=== PATIENT | female | born 1970 | race Two or more races ===

== ENCOUNTER 2017-07-16 12:43 | Emergency (ER) | payer MEDICAID ==
[~2017-07-16] VITALS: Ht 152.4 cm; Wt 52.2 kg
--- NOTE | 2017-07-16 12:49 | NUR ---
GEO DWYER, WAS FOUND ALTERED ON STREET, BEGAN SCREAMING AND YELLING S/P 1MG NARCAN GIVEN IN FIELD. PLACED ON MONITOR.AWAITING MD ORDER
[2017-07-16] MEDS ORDERED: HALOPERIDOL LACTATE INJ 5 MG/ML VIAL ONE (12:51)
[2017-07-16] MEDS ORDERED: OLANZAPINE 10 MG VIAL IM ONE ×2 (12:53→17:00)
[2017-07-16] MEDS ORDERED: IV NS 0.9% 1,000 ML BAG IV ONE ×2 (13:30→14:00)
[2017-07-16 13:38] LABS: CALCIUM, SERUM 9.1 mg/dL (8.5-10.1); CREATININE 0.9 mg/dL (0.6-1.3); POTASSIUM 4.4 mmol/L (3.5-5.1)
[2017-07-16 13:43] LABS: BASOPHILS % (AUTO) 0.2 % (0.0-2.0); EOSINOPHILS % (AUTO) 1.5 % (0.0-6.0); HEMATOCRIT 39 % (33-45); HEMOGLOBIN 13.1 g/dL (11.5-14.8); LYMPHOCYTES # (AUTO) 1.1 /CMM (0.8-4.8); LYMPHOCYTES % (AUTO) 9.9 % (20.0-44.0); MEAN CORPUSCULAR HGB CONC 33 g/dl (31.0-36.0); MEAN CORPUSCULAR VOLUME 76 fL (82-100); MONOCYTES # (AUTO) 0.8 /CMM (0.1-1.30); MONOCYTES % (AUTO) 6.9 % (2.0-12.0); NEUTROPHILS % (AUTO) 81.5 % (43.0-81.0); PLATELET COUNT (AUTO) 492 /CMM (150-450); RDW COEFFICIENT OF VARIATION 17.1 (11.5-15.0); RED BLOOD CELL COUNT(AUTO) 5.18 MIL/uL (4.0-5.2); WHITE BLOOD COUNT (AUTO) 11.1 K/uL (4.3-11.0)
[2017-07-16] MEDS ORDERED: HALOPERIDOL LACTATE INJ 5 MG/ML VIAL IM ONE (17:00)
--- NOTE | 2017-07-16 22:41 | NUR ---
PT ALERT AMBULATORY STEADY GAIT DR SPAULDING MADE AWARE
--- NOTE | 2017-07-16 22:41 | NUR ---
PT LIVES WITH RIAZ [phone]
--- NOTE | 2017-07-16 23:09 | NUR ---
Patient discharged to home in stable condition. Written and verbal after care instructions given. Patient verbalizes understanding of instruction.
--- NOTE | 2017-07-16 23:09 | NUR ---
IV removed. Catheter intact and site benign. Pressure and 4x4 applied to site. No bleeding noted.
--- NOTE | 2017-07-16 23:10 | NUR ---
PER PT [id number] [facility] [id number]
--- NOTE | 2017-07-16 23:16 | NUR ---
DENIES SI/HI
--- NOTE | 2017-07-16 23:26 | NUR ---
TAXI VOUCHER GIVEN
[2017-07-16 23:33] VITALS: BP 110/68
== END 2017-07-16 23:34 | disposition home or self-care (01) ==
LOC: ER 12:45 → EDBD 12:45 → ER 23:34
DX: R41.82 Altered mental status, unspecified (principal)
CPT/HCPCS: 36415; 80048-TC; 80305; 84703-TC; 85025-TC; A4606; G0480; J1630; J3490; J7030

== ENCOUNTER 2017-10-30 19:24 | Inpatient (IN) | payer MEDICAID ==
[~2017-10-30] VITALS: Ht 165.1 cm; Wt 51.3 kg
--- NOTE | 2017-10-30 19:24 | NUR ---
BIB SELF; "LEFT ABD ABCESS" VSS NO ACUTE DISTRESS AT THIS TIME. SKIN IN AFFECTED AREA IS RED IN COLOR, HOT TO TOUCH. PT IS ALERT AND ORIENTED X3 ABLE TO MAKE NEEDS KNOWN. WILL CONTINUE TO MONITOR FOR ANY CHANGES DURING THE SHIFT.
--- NOTE | 2017-10-30 19:25 | NUR ---
ER MD CISNEROS AT BEDSIDE
[2017-10-30] MEDS ORDERED: ONDANSETRON HCL/PF 4 MG/2 ML VIAL IVP ONE (21:00)
[2017-10-30] MEDS ORDERED: IV NS 0.9% 1,000 ML BAG IV ONE (21:00)
[2017-10-30] MEDS ORDERED: VANCOMYCIN 1 GM in IV D5W 250 ML IV ONE (21:00)
[2017-10-30] MEDS ORDERED: MORPHINE SULFATE INJ 2 MG/ML DISP.SYRIN IV ONE (21:00)
[2017-10-30] MEDS ORDERED: CEFTRIAXONE 1GM BAG (ER ONLY) 50 ML IV ONE (21:00)
[2017-10-30] MEDS ORDERED: ONDANSETRON HCL/PF 4 MG/2 ML VIAL ONE (21:02)
[2017-10-30] MEDS ORDERED: CEFTRIAXONE 1 G VIAL ONE (21:02)
[2017-10-30] MEDS ORDERED: VANCOMYCIN 1 GM VIAL ONE (21:02)
[2017-10-30] MEDS ORDERED: MORPHINE SULFATE INJ 4 MG/ML DISP.SYRIN ONE (21:03)
[2017-10-30] MEDS ORDERED: LIDOCAINE HCL/PF 1% 30 ML SDV ONE (21:10)
--- NOTE | 2017-10-30 21:41 | NUR ---
PICC LINE IN ER AND NOTIFIED ABOUT ORDER FOR PICC LINE PLACEMENT ON THIS PATIENT.
[2017-10-30] MEDS ORDERED: MORPHINE SULFATE INJ 2 MG/ML DISP.SYRIN IM ONE (22:00)
--- NOTE | 2017-10-30 22:39 | NUR ---
TRIPLE LUMEN PICC LINE PLACED BY PICC LINE RN. CONSETN SIGNED AND PLACED IN CHART
--- NOTE | 2017-10-30 22:40 | NUR ---
BLOOD SENT TO LAB
--- NOTE | 2017-10-30 22:44 | NUR ---
RM 201
[2017-10-30 22:45] LABS: BASOPHILS % (AUTO) 0.1 % (0.0-2.0); EOSINOPHILS % (AUTO) 1.7 % (0.0-6.0); HEMATOCRIT 33 % (33-45); HEMOGLOBIN 10.5 g/dL (11.5-14.8); LYMPHOCYTES # (AUTO) 0.7 /CMM (0.8-4.8); LYMPHOCYTES % (AUTO) 4.9 % (20.0-44.0); MEAN CORPUSCULAR HEMOGLOBIN 25 PG (26.0-33.0); MEAN CORPUSCULAR HGB CONC 32 g/dl (31.0-36.0); MEAN CORPUSCULAR VOLUME 79 fL (82-100); MONOCYTES % (AUTO) 6.7 % (2.0-12.0); NEUTROPHILS % (AUTO) 86.6 % (43.0-81.0); PLATELET COUNT (AUTO) 498 /CMM (150-450); RDW COEFFICIENT OF VARIATION 16.9 (11.5-15.0); RED BLOOD CELL COUNT(AUTO) 4.21 MIL/uL (4.0-5.2)
--- NOTE | 2017-10-30 22:50 | NUR ---
REPORT GIVEN TO JOSE MALIK
[2017-10-30 22:57] LABS: CALCIUM, SERUM 8.2 mg/dL (8.5-10.1); CREATININE 0.7 mg/dL (0.6-1.3); POTASSIUM 4.4 mmol/L (3.5-5.1)
[2017-10-30 23:01] LABS: INR 0.94 (0.87-1.13)
[2017-10-30 23:15] VITALS: BP 96/56
--- NOTE | 2017-10-30 23:15 | NUR ---
RN NOTES RECEIVED PATIENT FROM ER FOR DX ABD/LEFT FLANK CELLULITIS. AO X 3, ABLE TO MAKE NEEDS KNOWN. NO ACUTE DISTRESS NOTED. MONITORED FOR PAIN. GABRIEL PICC PATENT, INTACT; FLUSHED. ABD/L FLANK DRESSING INTACT. SKIN ASSESSMENT DONE; WOUNDS PHOTOGRAPHED. SAFETY REMINDERS GIVEN. ORIENTATION TO ROOM AND UNIT GIVEN TO PATIENT. ON LOW BED WITH BILATERAL UPPER SIDE RAILS UP. CALL CH WITHIN EASY REACH. WILL CONTINUE TO MONITOR.
[2017-10-31] MEDS ORDERED: Z GUARD REMEDY 2 OZ OINT TP PRN (00:30)
[2017-10-31] MEDS ORDERED: ACETAMINOPHEN 325 MG TABLET PO PRN (00:30)
[2017-10-31] MEDS ORDERED: ONDANSETRON HCL/PF 4 MG/2 ML VIAL IVP PRN (00:30)
[2017-10-31] MEDS ORDERED: ZOLPIDEM TARTRATE 5 MG TABLET PO PRN (00:30)
[2017-10-31] MEDS ORDERED: MORPHINE SULFATE INJ 2 MG/ML DISP.SYRIN IV PRN (00:30)
[2017-10-31] MEDS: IV NS 0.9% 1,000 ML IV PRN ×2 (00:49→23:26)
[2017-10-31] MEDS ORDERED: MORPHINE SULFATE INJ 4 MG/ML DISP.SYRIN ONE (02:08)
[2017-10-31] MEDS: MORPHINE SULFATE INJ 4 MG/ML DISP.SYRIN IV PRN ×3 (02:35→18:31)
[2017-10-31] MEDS ORDERED: PIPERACILLIN /TAZOBACTAM 3.375 G in IV D5W 50 ML IV SCH (06:00)
--- NOTE | 2017-10-31 06:12 | NUR ---
RN NOTES PATIENT ASLEEP, EASILY AROUSABLE. RESPIRATIONS EVEN. NO SIGNS OF PAIN NOTED. IVF INFUSING ORDERED. NEEDS ATTENDED. SAFETY PRECAUTIONS AND COMFORT MEASURES IN PLACE. WILL GIVE REPORT TO DAY SHIFT FOR CONTINUITY OF CARE.
--- NOTE | 2017-10-31 07:30 | NUR ---
PT RECEIVED RESTING COMFORTABLY IN BED. NO S/S OR C/O PAIN OR DISTRESS NOTED. SIDERAILS UP X2, CALL LIGHT LEFT WITHIN REACH. WILL CONTINUE PLAN OF CARE.
[2017-10-31 07:58] VITALS: BP 100/56
[2017-10-31] MEDS ORDERED: FEE PK DOSING 1 MIN EA MC ONE (09:56)
--- NOTE | 2017-10-31 10:12 | NUR ---
Social service consult requested by keycase assembler Cecelia Cross for homelessness. Pt. is a 47 year old female who was admitted to [facility] for cellulitis. SW met with pt. bedside. Pt. is alert and oriented x 4. Pt. was cooperative with SW during the assessment. Pt. states she is resides with a friend at [address] [place] [address] in [place]. Pt's emergency contact is her daughter Jami Pulido . Pt. receives $250 a month in [place] and $150 in food stamps. Pt. denies any psychiatric diagnoses or hospitalizations. Pt. denies suicidal and homicidal ideations at this time. Pt. denies visual and auditory hallucinations. Pt. denies alcohol use. Pt. is a heroin user. Pt. was sober for 3 months and relapsed this week. Pt. attended a drug rehab facility in 2005. Pt. is interested in Drug Rehab referrals. SW to give pt. referrals prior to discharge. SW updated keycase assembler Jessica and JOSE Baca regarding pt. not being homeless. No other social service needs are requested at this time. SW is available, if needed.
[2017-10-31] MEDS: VANCOMYCIN 1 GM in IV D5W 250 ML IV SCH ×2 (10:58→21:26)
[2017-10-31] MEDS: AZTREONAM 1 G in IV NS 0.9% 100 ML IV SCH ×2 (13:32→20:40)
[2017-10-31 16:00] VITALS: BP 92/51
--- NOTE | 2017-10-31 18:14 | NUR ---
CHANGE OF SHIFT REPORT PT RESTING COMFORTABLY IN BED. NO S/S OR C/O PAIN OR DISTRESS NOTED. SIDE RAILS UP X2, CALL LIGHT LEFT WITHIN REACH. PT KEPT CLEAN, DRY, AND COMFORTABLE. NO SIGNIFICANT CHANGES SINCE PREVIOUS SHIFT. WILL GIVE REPORT TO IRVING GARCIA.
--- NOTE | 2017-10-31 19:00 | NUR ---
MS-2 RN OPENING NOTES PT SLEEPING IN BED. NO S/S OR C/O PAIN OR DISTRESS NOTED.PT HAS PICC LINE ONGOING NS AT 75 ML/H .BED IN LOWER AND LOCKED POSITION. SIDE RAILS UP X2, CALL LIGHT WITHIN REACH. WILL CONTINUE TO MONITOR.
[2017-10-31 20:00] VITALS: BP_SYST 100; BP_SYST 116; BP_SYST 95; BP_DIAS 55; BP_DIAS 56; BP_DIAS 57
[2017-11-01] MEDS: MORPHINE SULFATE INJ 4 MG/ML DISP.SYRIN IV PRN ×3 (00:10→20:25)
[2017-11-01] MEDS: AZTREONAM 1 G in IV NS 0.9% 100 ML IV SCH ×3 (04:50→20:11)
--- NOTE | 2017-11-01 06:28 | NUR ---
MS RN NOTES PATIENT ASLEEP, EASILY AROUSAL. RESPIRATIONS EVEN. NO SIGNS OF PAIN NOTED. IVF INFUSING ORDERED AT 75ML/HR. NEEDS ATTENDED. SAFETY PRECAUTIONS IN PLACE,CALL LIGHT WITHIN REACH.WILL ENDORSE TO NEXT SHIFT FOR CONTINUITY OF CARE.
[2017-11-01 08:13] VITALS: BP 92/70
[2017-11-01 08:44] LABS: BASOPHILS % (AUTO) 0.2 % (0.0-2.0); EOSINOPHILS % (AUTO) 3.7 % (0.0-6.0); HEMATOCRIT 36 % (33-45); HEMOGLOBIN 11.5 g/dL (11.5-14.8); LYMPHOCYTES # (AUTO) 0.7 /CMM (0.8-4.8); LYMPHOCYTES % (AUTO) 5.3 % (20.0-44.0); MEAN CORPUSCULAR HEMOGLOBIN 26 PG (26.0-33.0); MEAN CORPUSCULAR HGB CONC 32 g/dl (31.0-36.0); MEAN CORPUSCULAR VOLUME 80 fL (82-100); MONOCYTES % (AUTO) 7.5 % (2.0-12.0); NEUTROPHILS # (AUTO) 11.4 /CMM (1.8-8.9); NEUTROPHILS % (AUTO) 83.3 % (43.0-81.0); PLATELET COUNT (AUTO) 537 /CMM (150-450); RDW COEFFICIENT OF VARIATION 17.3 (11.5-15.0); WHITE BLOOD COUNT (AUTO) 13.7 K/uL (4.3-11.0)
[2017-11-01 08:45] LABS: CALCIUM, SERUM 8.7 mg/dL (8.5-10.1); CREATININE 0.7 mg/dL (0.6-1.3); MAGNESIUM 2.1 mg/dL (1.8-2.4); PHOSPHORUS 3.3 mg/dL (2.5-4.9); POTASSIUM 3.9 mmol/L (3.5-5.1)
[2017-11-01] MEDS: VANCOMYCIN 1 GM in IV D5W 250 ML IV SCH ×2 (09:04→21:25)
[2017-11-01] MEDS: DAKINS QUARTER STRENGTH (0.125%) 480 ML BOTTLE TOP SCH (09:16)
--- NOTE | 2017-11-01 09:20 | NUR ---
MS RN NOTES PATIENT IS A/O X4, AMBULATES INDEPENDENTLY. LEFT FLANK DRESSING C/D/I, C/O PAIN 11/13, MEDICATED WITH IV PRN MORPHINE, WILL REASSESS. GOOD APPETITE, BREATHING IN ROOM AIR. WILL CONT TO MONITOR.
--- NOTE | 2017-11-01 10:28 | NUR ---
WOUND CARE CONSULT WOUND CARE RECEIVED WOUND CONSULT FOR ABD/L FLANK ABSCESS, MULTIPLE SUPERFICIAL WOUNDS AND RED AREAS. WOUND CARE WILL DEFER CONSULT AND ALL TREATMENT PLANS TO SURGICAL TEAM WHO ARE CURRENTLY FOLLOWING. PATIENT WITH ROSARIO AT 22, WILL SEE PRN.
[2017-11-01 16:15] VITALS: BP 90/59
--- NOTE | 2017-11-01 18:33 | NUR ---
MS RN CLOSING NOTES VS remains stable, pain is controlled with IV PRN morphine. Continued on IV antibiotic for cellulitis left flank. Patient will be NPO breakfast, procedure tomorrow with Dr. Willy hill, patient consented procedure -Wound debridement and washout of left flank, consent form place in the chart. Will endorse to oncoming RN.
--- NOTE | 2017-11-01 19:30 | NUR ---
RN NOTES RECEIVED PATIENT IN BED AWAKE, AO X 3, ABLE TO MAKE NEEDS KNOWN. NO ACUTE DISTRESS NOTED. MONITORED FOR PAIN. IV SITE PATENT, INTACT; IVF INFUSING ORDERED. SAFETY REMINDERS GIVEN. ON LOW BED WITH BILATERAL UPPER SIDE RAILS UP. CALL CH WITHIN EASY REACH. WILL CONTINUE TO MONITOR.
[2017-11-01 20:00] VITALS: BP 102/58
[2017-11-02] MEDS: AZTREONAM 1 G in IV NS 0.9% 100 ML IV SCH ×3 (05:37→20:52)
--- NOTE | 2017-11-02 06:05 | NUR ---
RN NOTES PATIENT ASLEEP, EASILY AROUSABLE. RESPIRATIONS EVEN. NO SIGNS OF PAIN NOTED. DUE MEDS GIVEN WITH NO ASE NOTED. NEEDS ATTENDED. NPO SINCE MIDNIGHT. SAFETY PRECAUTIONS AND COMFORT MEASURES IN PLACE. WILL GIVE REPORT TO DAY SHIFT FOR CONTINUITY OF CARE.
[2017-11-02] MEDS: IV NS 0.9% 1,000 ML IV PRN (06:23)
[2017-11-02 06:38] LABS: CALCIUM, SERUM 8.3 mg/dL (8.5-10.1); CREATININE 0.6 mg/dL (0.6-1.3); POTASSIUM 4.2 mmol/L (3.5-5.1)
[2017-11-02 06:44] LABS: BASOPHILS % (AUTO) 0.2 % (0.0-2.0); EOSINOPHILS % (AUTO) 6.9 % (0.0-6.0); HEMATOCRIT 33 % (33-45); HEMOGLOBIN 10.7 g/dL (11.5-14.8); LYMPHOCYTES # (AUTO) 0.6 /CMM (0.8-4.8); LYMPHOCYTES % (AUTO) 5.8 % (20.0-44.0); MEAN CORPUSCULAR HEMOGLOBIN 25 PG (26.0-33.0); MEAN CORPUSCULAR HGB CONC 32 g/dl (31.0-36.0); MEAN CORPUSCULAR VOLUME 79 fL (82-100); MONOCYTES # (AUTO) 0.8 /CMM (0.1-1.30); MONOCYTES % (AUTO) 8.1 % (2.0-12.0); NEUTROPHILS # (AUTO) 8.2 /CMM (1.8-8.9); PLATELET COUNT (AUTO) 523 /CMM (150-450); RDW COEFFICIENT OF VARIATION 16.8 (11.5-15.0); RED BLOOD CELL COUNT(AUTO) 4.23 MIL/uL (4.0-5.2); WHITE BLOOD COUNT (AUTO) 10.4 K/uL (4.3-11.0)
[2017-11-02] MEDS ORDERED: MIDAZOLAM HCL 2 MG/2ML VIAL ONE (07:36)
[2017-11-02] MEDS ORDERED: FENTANYL PF 100MCG/2ML AMPUL ONE (07:36)
--- NOTE | 2017-11-02 07:54 | NUR ---
MS RN NOTES Patient is A/O 4, NPO post MN. Consent signed, patient consented procedure. At the OR today for wound debridement and washout of left flank. VS stable.
[2017-11-02 08:16] VITALS: BP 93/61
[2017-11-02 09:19] VITALS: BP 92/61
--- NOTE | 2017-11-02 09:20 | NUR ---
Patient is back from surgery, s/p wound debridement and washout left flank by Dr. Natarajan. Patient is awake, responsive, remains A/O x4, denies pain. Left flank, dressing C/D/I, no bleeding. Regular diet as ordered, will cont to monitor.
[2017-11-02] MEDS: VANCOMYCIN 1 GM in IV D5W 250 ML IV SCH ×2 (10:21→21:49)
[2017-11-02] MEDS: DAKINS QUARTER STRENGTH (0.125%) 480 ML BOTTLE TOP SCH (10:21)
[2017-11-02 12:00] VITALS: BP 120/59
[2017-11-02] MEDS: MORPHINE SULFATE INJ 4 MG/ML DISP.SYRIN IV PRN ×2 (12:50→18:57)
[2017-11-02 16:00] VITALS: BP 94/63
[2017-11-02] MEDS: LACTOBACILLUS RHAMNOSUS GG 1 EACH CAP.SPRINK PO SCH (16:25)
--- NOTE | 2017-11-02 18:10 | NUR ---
MS RN CLOSING NOTES s/p wound debridement and washout left flank today by Dr. Natarajan. VS remains stable, left flank dressing C/D/I, no bleeding noted. Pain is controlled with PRN IV morphine, continued on IV antibiotic. Afebrile during the shift, good appetite. Call light within reach. Will endorse to oncoming RN.
--- NOTE | 2017-11-02 19:03 | NUR ---
MS RN NOTES RECEIVED ON HIGH FOWLERS POSITION,A/O X4,ABLE TO VERBALIZED NEEDS,S/P WOUND DEBRIDEMENT ON LEFT BUTTOCKS.DRESSING INTACT AND DRY.ABLE TO ATE FOOD ALMOST 100%.CALL LIGHT IN REACH,NEEDS ANTICIPATED.
[2017-11-02 20:00] VITALS: BP 92/62
[2017-11-03] MEDS: IV NS 0.9% 1,000 ML IV PRN (04:57)
[2017-11-03] MEDS: AZTREONAM 1 G in IV NS 0.9% 100 ML IV SCH ×3 (04:57→20:02)
--- NOTE | 2017-11-03 06:23 | NUR ---
MS RN NOTES FAIRLY RESTED AT NIGHT,IV ABX TOLERATED WELL,NO COMPLAINTS OF PAIN.IVF INFUSING VIA RIGHT UPPER ARM PICC LINE.IN NO ACUTE DISTRESS,CALL LIGHT IN REACH,NEEDS ATTENDED.WILL ENDORSE TO DAY NURSE FOR ISAURA.
[2017-11-03] MEDS: MORPHINE SULFATE INJ 4 MG/ML DISP.SYRIN IV PRN ×2 (06:44→23:10)
--- NOTE | 2017-11-03 06:44 | NUR ---
MS RN NOTES C/O LEFT FLANK PAIN,9/10 ON PAIN SCALE,MORPHINE 4MG IVP GIVEN ORDERED
[2017-11-03 08:00] VITALS: BP 100/58
--- NOTE | 2017-11-03 08:00 | NUR ---
MS-2 RN AM NOTES PT ALERT AND AWAKE AND VERBALLY RESPONSIVE. NO S/S OR C/O PAIN OR DISTRESS NOTED.PT HAS GERMAINE PICC LINE ONGOING NS AT 75 ML/H INFUSING WELL.WITH BRP.BED IN LOWER AND LOCKED POSITION. SIDE RAILS UP X2, CALL LIGHT WITHIN REACH. WILL CONTINUE TO MONITOR.
[2017-11-03] MEDS: LACTOBACILLUS RHAMNOSUS GG 1 EACH CAP.SPRINK PO SCH ×2 (08:07→16:14)
[2017-11-03] MEDS: VANCOMYCIN 1 GM in IV D5W 250 ML IV SCH ×2 (08:32→21:13)
[2017-11-03] MEDS: DAKINS QUARTER STRENGTH (0.125%) 480 ML BOTTLE TOP SCH (08:32)
[2017-11-03 08:56] LABS: CALCIUM, SERUM 8.2 mg/dL (8.5-10.1); CREATININE 0.7 mg/dL (0.6-1.3); MAGNESIUM 1.7 mg/dL (1.8-2.4); PHOSPHORUS 3.8 mg/dL (2.5-4.9); POTASSIUM 3.8 mmol/L (3.5-5.1)
[2017-11-03 09:06] LABS: BASOPHILS % (AUTO) 0.2 % (0.0-2.0); EOSINOPHILS % (AUTO) 4.2 % (0.0-6.0); HEMATOCRIT 36 % (33-45); HEMOGLOBIN 11.3 g/dL (11.5-14.8); LYMPHOCYTES # (AUTO) 0.7 /CMM (0.8-4.8); MEAN CORPUSCULAR HEMOGLOBIN 25 PG (26.0-33.0); MEAN CORPUSCULAR HGB CONC 32 g/dl (31.0-36.0); MEAN CORPUSCULAR VOLUME 78 fL (82-100); MONOCYTES # (AUTO) 0.7 /CMM (0.1-1.30); NEUTROPHILS # (AUTO) 10.2 /CMM (1.8-8.9); NEUTROPHILS % (AUTO) 83.6 % (43.0-81.0); PLATELET COUNT (AUTO) 544 /CMM (150-450); RDW COEFFICIENT OF VARIATION 16.8 (11.5-15.0); RED BLOOD CELL COUNT(AUTO) 4.57 MIL/uL (4.0-5.2); WHITE BLOOD COUNT (AUTO) 12.3 K/uL (4.3-11.0)
--- NOTE | 2017-11-03 10:49 | NUR ---
SEEN BY TIM KANG AND STATED THAT THE PT IS GOING TO STAY WITH HER FRIEND AND RESOURCES FOR DRUG REHAB GIVEN TO THE PT.
--- NOTE | 2017-11-03 10:52 | NUR ---
SW followed up with pt. and gave her drug rehab referrals to [facility] located at [address] [facility] ; [facility] located at [address] [facility]. ; and [facility] located at [address] [facility]. .
[2017-11-03] MEDS: Magnesium 1GM/D5W 100ML PREMIX 100 ML IV SCH ×2 (10:54→11:44)
[2017-11-03 16:00] VITALS: BP 93/62
[2017-11-03] MEDS: HYDROMORPHONE 1 MG/1 ML DISP.SYRIN IV PRN (17:18)
--- NOTE | 2017-11-03 17:42 | NUR ---
WOUND TX DONE TO LT FLANK WOUND BUT PT REFUSED TO DO HAVE THE WOUND PACKING WITH DAKINS MOIST DRESSING INSPITE OF EXPLANATIONS.
--- NOTE | 2017-11-03 18:23 | NUR ---
PT RESTING IN BED WITH DENIES PAIN OR DISTRESS.CONSUMED 100%DINNER WITH EXTRA PEANUT BUTTER JELLY SANDWICH.CALL LIGHT PLACED WITHIN REACH.
--- NOTE | 2017-11-03 19:25 | NUR ---
MS RN OPENING NOTES: RECEIVED PT ON ROOM AIR AND IS ASLEEP AT THIS TIME. PT HAS L UPPER ARM PICC LINE AND IS TO BE CONNECTED TO IV FLUIDS SOON. CALL LIGHT WITHIN PT'S REACH. BED KEPT IN LOW, LOCKED POSITION, AND SIDE RAILS X 2UP. WILL CONTINUE TO MONITOR PT.
[2017-11-03 20:00] VITALS: BP 95/56
--- NOTE | 2017-11-03 23:15 | NUR ---
MS RN NOTES: PT COMPLAINING OF 8/10 L FLANK,HIP PAIN. PT WAS ADMINISTERED MORPHINE 4MG VIA IV. WILL CONTINUE TO MONITOR PT.
[2017-11-04] MEDS: AZTREONAM 1 G in IV NS 0.9% 100 ML IV SCH ×2 (04:03→13:07)
[2017-11-04 06:41] LABS: EOSINOPHILS % (AUTO) 2.8 % (0.0-6.0); HEMATOCRIT 36 % (33-45); HEMOGLOBIN 11.2 g/dL (11.5-14.8); LYMPHOCYTES # (AUTO) 0.5 /CMM (0.8-4.8); LYMPHOCYTES % (AUTO) 4.4 % (20.0-44.0); MEAN CORPUSCULAR HEMOGLOBIN 25 PG (26.0-33.0); MEAN CORPUSCULAR HGB CONC 32 g/dl (31.0-36.0); MEAN CORPUSCULAR VOLUME 79 fL (82-100); MONOCYTES # (AUTO) 0.9 /CMM (0.1-1.30); MONOCYTES % (AUTO) 7.6 % (2.0-12.0); NEUTROPHILS # (AUTO) 10.4 /CMM (1.8-8.9); NEUTROPHILS % (AUTO) 85.2 % (43.0-81.0); PLATELET COUNT (AUTO) 500 /CMM (150-450); RDW COEFFICIENT OF VARIATION 17.6 (11.5-15.0); RED BLOOD CELL COUNT(AUTO) 4.47 MIL/uL (4.0-5.2); WHITE BLOOD COUNT (AUTO) 12.3 K/uL (4.3-11.0)
--- NOTE | 2017-11-04 06:48 | NUR ---
MS RN CLOSING NOTES: ALL NEEDS WERE ATTENDED AND ANTICIPATED FOR. PT ON ROOM AIR AND TOLERATING WELL. PT ASLEEP AT THIS TIME. PT DISCONNECTED FROM IV SHE SAYS SHE NEEDS TO CONSTANTLY USE THE RESTROOM. PT HAS R UPPER ARM PICC LINE. PT IS TO BE CONNECTED TO IV NS AT 75ML/HR. CALL LIGHT WITHIN PT'S REACH. BED KEPT IN LOW, LOCKED POSITION, AND SIDE RAILS X 2UP. WILL ENDORSE TO AM NURSE FOR ISAURA.
[2017-11-04 07:21] LABS: CALCIUM, SERUM 8.2 mg/dL (8.5-10.1); CREATININE 0.7 mg/dL (0.6-1.3); POTASSIUM 4.2 mmol/L (3.5-5.1)
[2017-11-04 08:00] VITALS: BP 95/60
--- NOTE | 2017-11-04 08:00 | NUR ---
MS-2 RN AM NOTES PT ALERT AND AWAKE AND VERBALLY RESPONSIVE. NO S/S OR C/O PAIN OR DISTRESS NOTED.PT HAS GABRIEL PICC LINE ONGOING NS AT 75 ML/H INFUSING WELL.WITH BRP.BED IN LOWER AND LOCKED POSITION. SIDE RAILS UP X2, CALL LIGHT WITHIN REACH. WILL CONTINUE TO MONITOR.
[2017-11-04] MEDS: VANCOMYCIN 1 GM in IV D5W 250 ML IV SCH (08:39)
[2017-11-04] MEDS: LACTOBACILLUS RHAMNOSUS GG 1 EACH CAP.SPRINK PO SCH ×2 (08:39→17:35)
[2017-11-04] MEDS: DAKINS QUARTER STRENGTH (0.125%) 480 ML BOTTLE TOP SCH (08:40)
[2017-11-04] MEDS: HYDROMORPHONE 1 MG/1 ML DISP.SYRIN IV PRN (09:31)
[2017-11-04] MEDS ORDERED: SULF1TAB48 PO (12:15)
[2017-11-04] MEDS ORDERED: OXYC-128 PO (12:15)
--- NOTE | 2017-11-04 15:32 | NUR ---
PT REFUSED TO HAVE HER WOUND PHOTOS TO BE TAKEN AT THIS TIME SAYING TO DO IT LATER.DISCHARGE PAPERS,BELONGINGS,INSTRUCTIONS AND PRESCRIPTION HAS BEEN GIVEN TO THE PT.PT WANTS TO SLEEP AND REST AT THIS TIME.
[2017-11-04 16:00] VITALS: BP 97/60
--- NOTE | 2017-11-04 16:35 | NUR ---
PT'S EX ARRIVED AND WAS IN A MOTT TO HAVE WOUND PHOTOS TO BE TAKEN-UNABLE TO PUT THE DATE AND TIME.OFFERED TO DO IT LATER BUT PT REFUSED.PT REFUSED TO HAVE HER RT HIP WOUND PHOTO TO BE TAKEN.
--- NOTE | 2017-11-04 18:27 | NUR ---
PT AWAITING FOR HER FRIEND TO PICK HER UP.PT'S EX AT BEDSIDE.REMOVED PT'S GABRIEL PICC LINE WITHOUT BLEEDING NOTED.PT TOLERATED WELL.NO SWELLING NOTED ON THE SITE.
--- NOTE | 2017-11-04 19:14 | NUR ---
DC NOTES: [id number] REPORT FROM UZMA GARCIA, PT DC TO HOME. ALL DC PAPER WORKS COMPLETED, SIGNED, BELONGINGS COMPLETED, HANDED OVER TO PT, SIGNED, PT'S EX DOESNT WANT TO LEAVE THE HOSPITAL SEEMS LIKE HE'S UNDER THE INFLUENCE, SECURITY WAS CALLED, ELEVATOR REPAIR MECHANIC ASSISTED PT'S IN A WHEELCHAIR. A/O X3, PER PT SHE WILL BRING HER EX HOME. ARMBAND AND IV ACCESS REMOVED. PT WAS PICKED UP BY HER FRIEND. LEFT THE UNIT VIA WHEELCHAIR ACCOMPANIED BY ELEVATOR REPAIR MECHANIC. MEDICALLY CLEARED, LEFT IN STABLE CONDITION.
== END 2017-11-04 19:20 | disposition home or self-care (01) | DRG 364 ==
LOC: ER 19:25 → MEDSG2 23:03
PROVIDERS: ADMIT Nurse Practitioner Acute Care; ATTEND Nurse Practitioner Acute Care
PROC: B548ZZA Ultrasonography of Superior Vena Cava, Guidance (ICD-10-PCS; 2017-10-30)
PROC: 02HV33Z Insertion of Infusion Device into Superior Vena Cava, Percutaneous Approach (ICD-10-PCS; 2017-10-30)
PROC: 0KBL0ZZ Excision of Left Abdomen Muscle, Open Approach (ICD-10-PCS; principal; 2017-11-02 13:00)
DX: L02.211 Cutaneous abscess of abdominal wall (principal); D47.3 Essential (hemorrhagic) thrombocythemia; D50.9 Iron deficiency anemia, unspecified; F17.200 Nicotine dependence, unspecified, uncomplicated; F19.10 Other psychoactive substance abuse, uncomplicated; Z59.0 Homelessness; Z88.0 Allergy status to penicillin
CPT/HCPCS: 36415; 80048-TC; 80061-TC; 80202-TC; 83605-TC; 83735-TC; 84100-TC; 84702-TC; 84703-TC; 85025-TC; 85730-TC; 87040-TC; 87070-TC; 87075-TC; 87081-TC; A4606; A6253; A6402; A6403; A6407; C1751; J0696; J1170; J2250; J2270; J2405; J2543; J3010; J3370; J3475; J3490; J7030; J7050; J7060; Z7610

== ENCOUNTER → 2017-11-22 | Emergency (ER) | payer MEDICAID ==
[~2017-11-22] VITALS: Ht 165.1 cm; Wt 47.6 kg
[~2017-11-22] MED LIST: AZTREONAM 1 G in IV NS 0.9% 100 ML IV ONE; CT SWABBABLE VALVE TRANS SET 1 EA INFUS.SET MC ONE; HYDROCODONE/APAP 5/325MG 1 EACH TABLET ONE; HYDROCODONE/APAP 5/325MG 1 EACH TABLET PO ONE; IOHEXOL-300 100 ML VIAL IV ONE; IV NS 0.9% 1,000 ML BAG IV ONE; IV NS 0.9% 250 ML IV ONE; LIDOCAINE 1%-EPI 1:100,000 20 ML VIAL ONE; OXYC-128 PO; SULF1TAB48 PO; VANCOMYCIN 1 GM in IV D5W 250 ML IV ONE
--- NOTE | 2017-11-22 14:00 | NUR ---
ABSCESS TO BACK OF L LEG S/P DRUG INJECTION, DEVELOPING FOR "WEEKS", DRAINING PUS AND BLOOD NAD NOTED, VSS, RESP EVEN AND UNLABORED, PT WAS PUT ON MONITOR, WAITING FOR MD CASAREZ.
--- NOTE | 2017-11-22 14:54 | NUR ---
CALLED NURSING CREDIT AND COLLECTIONS REPRESENTATIVE AND REQUESTED A MED SURG BED FOR THIS PT.
[2017-11-22 14:55] LABS: BASOPHILS # (AUTO) 0.1 /CMM (0.0-0.2); BASOPHILS % (AUTO) 1.2 % (0.0-2.0); EOSINOPHILS % (AUTO) 4.6 % (0.0-6.0); HEMATOCRIT 34 % (33-45); HEMOGLOBIN 10.9 g/dL (11.5-14.8); LYMPHOCYTES # (AUTO) 0.8 /CMM (0.8-4.8); LYMPHOCYTES % (AUTO) 9.4 % (20.0-44.0); MEAN CORPUSCULAR HEMOGLOBIN 25 PG (26.0-33.0); MEAN CORPUSCULAR HGB CONC 32 g/dl (31.0-36.0); MEAN CORPUSCULAR VOLUME 76 fL (82-100); MONOCYTES # (AUTO) 0.7 /CMM (0.1-1.30); MONOCYTES % (AUTO) 8.6 % (2.0-12.0); NEUTROPHILS # (AUTO) 6.7 /CMM (1.8-8.9); NEUTROPHILS % (AUTO) 76.2 % (43.0-81.0); PLATELET COUNT (AUTO) 621 /CMM (150-450); RDW COEFFICIENT OF VARIATION 14.7 (11.5-15.0); RED BLOOD CELL COUNT(AUTO) 4.44 MIL/uL (4.0-5.2); WHITE BLOOD COUNT (AUTO) 8.7 K/uL (4.3-11.0)
[2017-11-22 15:04] LABS: CALCIUM, SERUM 8.9 mg/dL (8.5-10.1); CREATININE 0.8 mg/dL (0.6-1.3); POTASSIUM 3.6 mmol/L (3.5-5.1)
[2017-11-22 15:06] LABS: INR 0.95 (0.85-1.15)
[2017-11-22 15:13] LABS: ALBUMIN 2.5 g/dL (3.4-5.0); BILIRUBIN,DIRECT 0.1 mg/dL (0.0-0.2); BILIRUBIN,TOTAL 0.2 mg/dL (0.2-1.0); TOTAL PROTEIN, SERUM 7.3 g/dL (6.4-8.2)
--- NOTE | 2017-11-22 16:46 | NUR ---
PT TO CTSCAN
[2017-11-22 17:20] VITALS: BP 115/75
--- NOTE | 2017-11-22 17:30 | NUR ---
rfa midline removed. Catheter intact and site benign. Pressure and 4x4 applied to site. No bleeding noted.
--- NOTE | 2017-11-22 17:38 | NUR ---
Patient does not wish to proceed with medical care recommended by Dr. Lemus. Patient given information related to possible complications, up to and including , which could occur as a result of leaving the hospital at this time. Patient verbalizes understanding of risks involved due to leaving against medical advice. Patient has signed AMA form.
== END | disposition left against medical advice (07) ==
LOC: ER 13:14
DX: L02.416 Cutaneous abscess of left lower limb (principal); F11.10 Opioid abuse, uncomplicated; D47.3 Essential (hemorrhagic) thrombocythemia; F17.200 Nicotine dependence, unspecified, uncomplicated; R91.1 Solitary pulmonary nodule; D64.9 Anemia, unspecified; Z88.0 Allergy status to penicillin
CPT/HCPCS: 10061; 36415; 71045; 71260; 73552; 80048; 80076; 84703; 85025; 85730; 87040 ×2; 87070; 87081; 93005; 99285; 99406; A4606; A6253; A6402 ×2; A6403 ×2; A6407; J3490; J7030; J7050; Q9967; Z7610; J3370; J7060

== ENCOUNTER 2018-09-15 02:06 | Emergency (ER) | payer MEDICAID ==
[~2018-09-15] VITALS: Ht 170.2 cm; Wt 52.2 kg
[2018-09-15 02:25] VITALS: BP 132/93
--- NOTE | 2018-09-15 03:17 | NUR ---
CALLED IN WR, NO ANSWER.
--- NOTE | 2018-09-15 04:01 | NUR ---
PATIENT NOT IN WR.
--- NOTE | 2018-09-15 04:43 | NUR ---
PATIENT NOT IN WR.
== END 2018-09-15 04:47 | disposition left against medical advice (07) ==
LOC: ER 02:11
DX: Z53.21 Procedure and treatment not carried out due to patient leaving prior to being seen by health care provider (principal); R22.0 Localized swelling, mass and lump, head

== ENCOUNTER 2021-02-10 02:20 | Inpatient (IN) | payer MEDICAID ==
[~2021-02-10] VITALS: Ht 165.1 cm; Wt 54.4 kg
[2021-02-10 03:19] VITALS: BP 139/76
[2021-02-10] MEDS ORDERED: VANCOMYCIN 1 GM in IV D5W 250 ML IV ONE (03:30)
[2021-02-10] MEDS ORDERED: MORPHINE SULFATE INJ 2 MG/ML DISP.SYRIN IV ONE (03:30)
[2021-02-10] MEDS ORDERED: ONDANSETRON HCL/PF 4 MG/2 ML VIAL IVP ONE (03:30)
[2021-02-10] MEDS ORDERED: VANCOMYCIN 1 GM VIAL ONE (03:33)
[2021-02-10] MEDS ORDERED: MORPHINE SULFATE INJ 4 MG/ML DISP.SYRIN ONE (03:33)
[2021-02-10] MEDS ORDERED: ONDANSETRON HCL/PF 4 MG/2 ML VIAL ONE (03:33)
--- NOTE | 2021-02-10 03:50 | NUR ---
BLOOD COLLECTED, SENT TO LAB.
--- NOTE | 2021-02-10 03:50 | NUR ---
EMILIAID SWABBED, SENT TO LAB.
[2021-02-10 03:58] LABS: BASOPHILS % (AUTO) 0.4 % (0.0-2.0); EOSINOPHILS % (AUTO) 2.2 % (0.0-6.0); HEMATOCRIT 39 % (33-45); HEMOGLOBIN 12.8 g/dL (11.5-14.8); LYMPHOCYTES # (AUTO) 0.9 K/uL (0.8-4.8); LYMPHOCYTES % (AUTO) 8.3 % (20.0-44.0); MEAN CORPUSCULAR HGB CONC 33 g/dl (31.0-36.0); MEAN CORPUSCULAR VOLUME 78 fL (82-100); MONOCYTES # (AUTO) 0.6 K/uL (0.1-1.30); MONOCYTES % (AUTO) 5.5 % (2.0-12.0); NEUTROPHILS # (AUTO) 8.8 K/uL (1.8-8.9); NEUTROPHILS % (AUTO) 83.6 % (43.0-81.0); PLATELET COUNT (AUTO) 661 K/uL (150-450); RED BLOOD CELL COUNT(AUTO) 4.98 MIL/uL (4.0-5.2); WHITE BLOOD COUNT (AUTO) 10.5 K/uL (4.3-11.0)
[2021-02-10 04:11] LABS: CALCIUM, SERUM 9.2 mg/dL (8.5-10.1); CREATININE 0.8 mg/dL (0.6-1.3); POTASSIUM 3.5 mmol/L (3.5-5.1)
[2021-02-10 04:14] LABS: ALBUMIN 3.2 g/dL (3.4-5.0); BILIRUBIN,DIRECT 0.2 mg/dL (0.0-0.2); BILIRUBIN,TOTAL 0.5 mg/dL (0.2-1.0); TOTAL PROTEIN, SERUM 8.4 g/dL (6.4-8.2)
--- NOTE | 2021-02-10 05:41 | NUR ---
REPORT GIVEN TO BIC
--- NOTE | 2021-02-10 05:55 | NUR ---
PATIENT BEING TRANSFERRED TO [facility]
[2021-02-10] MEDS ORDERED: ONDANSETRON HCL/PF 4 MG/2 ML VIAL IVP PRN (06:00)
[2021-02-10] MEDS ORDERED: MAG HYDROX/AL HYDROX/SIMETH 30 ML UDC PO PRN (06:00)
[2021-02-10] MEDS ORDERED: HYDROCODONE/APAP 5/325MG TABLET PO PRN (06:00)
[2021-02-10] MEDS ORDERED: HYDROMORPHONE INJ 2 MG/ML DISP.SYRIN IV PRN (06:00)
[2021-02-10] MEDS ORDERED: ZOLPIDEM TARTRATE 5 MG TABLET PO PRN (06:00)
[2021-02-10] MEDS ORDERED: Z GUARD REMEDY 2 OZ OINT TP PRN (06:00)
[2021-02-10] MEDS ORDERED: ACETAMINOPHEN 325 MG TABLET PO PRN (06:00)
[2021-02-10] MEDS ORDERED: MAGNESIUM HYDROXIDE 30 ML UDC PO PRN (06:00)
--- NOTE | 2021-02-10 06:36 | NUR ---
RN ADMITTING NOTES: RECEIVED PATIENT V FROM ER VIA [facility] AT 0620 ON STABLE CONDITION, PATIENT IS ALERT ORIENTED X4 AMBULATORY WITH SUPERVISION, BRP, NO COMPLAIN OF PAIN AND DISCOMFORT AT THIS TIME, SKIN ASSESSMENT DONE, TAKEN AND DOCUMENTED, WITH IV LINE AT R HAND #22 SL, PATIENT WAS ORIENTED TO PLACE, REMIND PATIENT TO USE CALL LIGHTS WHEN NEEDED ASSISTANCE, V/S ARE TAKEN AND RECORDED AND WNR, KEPT CLEAN AND DRY, ALL NEED MET ENDORSE TO INCOMING SHIFT.
[2021-02-10] MEDS ORDERED: HYDROMORPHONE 1 MG/1 ML DISP.SYRIN IV PRN (07:30)
--- NOTE | 2021-02-10 07:41 | NUR ---
RN OPENING NOTES PATIENT IN BED SLEEPING, AWAKENS TO VERBAL STIMULI. A/O X4. NO S/S OF PAIN NOTED AT THIS TIME. ON ROOM AIR, NO DISTRESS OR SHORTNESS OF BREATH NOTED. IV ACCESS RIGHT HAND #22G, INTACT AND PATENT. FALL AND SAFETY MEASURES IN PLACE, BED ALARM ON, BED IN LOW AND LOCK POSITION, CALL LIGHT WITHIN EASY REACH, SIDE RAILS UP X2. WILL CONTINUE TO MONITOR.
--- NOTE | 2021-02-10 09:44 | NUR ---
WOUND CARE CONSULT: PT REFUSED SKIN ASSESSMENT. DEFER TO PMD FOR POSSIBLE SURGICAL CONSULT. WILL SEE PRN. Addendum: 02/10/21 at 0959 by MARIO GAMINO WNDNU PT PREVIOUSLY SEEN BY PLASTICS TEAM. DR TRIVEDI CONSULTED. DISCUSSED WITH NURSING STAFF AND PEDIATRIC ORTHODONTIST.
--- NOTE | 2021-02-10 11:25 | NUR ---
SS Consult: SS consult for drug abuse. Pt. Is a 50-year-old female. Pt. demonstrates adequate insight to the reason for hospitalization. Per pt., she was brought to hospital by boyfriend due to abscess. Pt. was oriented x3, alert, and cooperative. During interview, pt. was capable of following directions, did not make eye-contact, and looked in pain. Pt.s speech was at a normal rate. TIM explored pt.s Hx of mental health and substance abuse. Pt. reported no Hx of mental health, substance abuse, suicidal or homicidal. Pt. denies auditory hallucinations, visual hallucinations, paranoia, or delusions. Per pt., she does not have Hx of substance use. TIM explored pt.s living situation. Per pt., she lives with her boyfriend [[id number] [place] [address]]. Per pt., she reports having adequate support from her boyfriend. TIM explored pt.s financial status. Per pt., she is currently not working and receives food stamps. Plan: TIM provided available resources and pt. denied. Per pt., she does not have a substance problem. Once discharge, per pt., she will return to home with her boyfriend [[address] [place] [address]]. Resources Provided: Substance Abuse resources provided included: [facility] Substance Abuse Self-Helpline ([facility]) ; [facility] [address] [facility]. [place] [id number] ; [facility] [address] [facility] [address] ; [facility] [address] [facility] [address] ; [facility] [address] [facility] [address] ; [facility] [address] [facility] [address] ; [facility] [address] [facility] [id number] ; [facility] Substance Abuse Helpline([facility] ; [facility] ; [facility] [place]; [facility] [place]; [facility] [place]; [facility] Jasbir Hiram; [facility] [place]; [facility] [place]; [facility] [place]; [facility], [facility]. Cece Marx; Alcoholics Anonymous [facility]; [facility] ; Marijuana Anonymous [facility]; Narcotics Anonymous www.na.org;
--- NOTE | 2021-02-10 11:41 | NUR ---
RN NOTE PT WANTED VISITORS TO COME TO HOSPITAL. VISITORS ARE UNVACCINATED AND UNABLE TO COME IN D/T TO HOSPITAL POLICY. PT STATED THAT SHE WANTS TO GO TO ANOTHER HOSPITAL. STATED TO PT THAT HOSPITAL POLICIES WILL NOT ALLOW UNVACCINATED VISITORS. PT STILL WANTS TO GO, SIGNED AMA FORM.
--- NOTE | 2021-02-10 11:46 | NUR ---
RN AMA NOTE PT LEFT HOME AMA. IV LINE REMOVED. ID BAND REMOVED. PT DECLINED EXITCARE EDUCATION AND DISCHARGE EDUCATION. MD NOTIFIED AND ALERTED OF AMA. CN AWARE. PT BELONGINGS DECLINED TO BE SIGNED. PT REFUSED WOUND ASSESSMENT PRIOR TO D/C. PT ESCORTED TO PRIVATE CAR ACCOMPANIED BY STAFF.
[2021-02-10] MEDS ORDERED: VANCOMYCIN 0.75 GM in IV D5W 250 ML IV SCH (13:00)
== END 2021-02-10 11:45 | disposition left against medical advice (07) | DRG 383 ==
LOC: ER 02:25 → MED 05:31
PROVIDERS: ADMIT Student in an Organized Health Care Education/Training Program; ATTEND Student in an Organized Health Care Education/Training Program
DX: L03.317 Cellulitis of buttock (principal); E44.1 Mild protein-calorie malnutrition; L02.31 Cutaneous abscess of buttock; E87.1 Hypo-osmolality and hyponatremia; R74.01 Elevation of levels of liver transaminase levels; Z20.822 Contact with and (suspected) exposure to COVID-19; Z88.0 Allergy status to penicillin; Z72.0 Tobacco use; Z59.00 Homelessness unspecified
CPT/HCPCS: 36415; 80048-TC; 80076-TC; 83605-TC; 85025-TC; 85730-TC; 87040-TC; 87081-TC; C9803; G0378; J2270; J2405; J3370; J7060

== ENCOUNTER 2021-06-18 02:47 | Inpatient (IN) | payer MEDICAID ==
[~2021-06-18] VITALS: Ht 165.1 cm; Wt 56.7 kg
--- NOTE | 2021-06-18 03:02 | NUR ---
TO ER BED 9. BIBSELF C/O ABCESS ON RIGHT BUTTOCKS, DRAINAGE X 4 DAYS. REDNESS NOTED. PT DENIES ANY TRAUMA. CHANGED INTO GOWN. AWAITING MD CASAREZ
--- NOTE | 2021-06-18 03:10 | NUR ---
COVID ANTIGEN SWAB COLLECTED AND SENT TO LAB
[2021-06-18] MEDS ORDERED: VANCOMYCIN 1 GM in IV D5W 250 ML IV ONE (03:30)
--- NOTE | 2021-06-18 03:45 | NUR ---
LAB AT BEDSIDE
[2021-06-18 03:53] LABS: BASOPHILS % (AUTO) 0.2 % (0.0-2.0); EOSINOPHILS % (AUTO) 3.7 % (0.0-6.0); HEMATOCRIT 35 % (33-45); HEMOGLOBIN 11.5 g/dL (11.5-14.8); LYMPHOCYTES # (AUTO) 0.9 K/uL (0.8-4.8); LYMPHOCYTES % (AUTO) 8.6 % (20.0-44.0); MEAN CORPUSCULAR HGB CONC 33 g/dl (31.0-36.0); MEAN CORPUSCULAR VOLUME 76 fL (82-100); MONOCYTES # (AUTO) 0.9 K/uL (0.1-1.30); MONOCYTES % (AUTO) 8.1 % (2.0-12.0); NEUTROPHILS # (AUTO) 8.6 K/uL (1.8-8.9); NEUTROPHILS % (AUTO) 79.4 % (43.0-81.0); PLATELET COUNT (AUTO) 513 K/uL (150-450); RED BLOOD CELL COUNT(AUTO) 4.59 MIL/uL (4.0-5.2); WHITE BLOOD COUNT (AUTO) 10.8 K/uL (4.3-11.0)
[2021-06-18 04:02] LABS: CALCIUM, SERUM 8.9 mg/dL (8.5-10.1); POTASSIUM 3.4 mmol/L (3.5-5.1)
[2021-06-18 04:08] LABS: ALBUMIN 2.7 g/dL (3.4-5.0); BILIRUBIN,DIRECT 0.1 mg/dL (0.0-0.2); BILIRUBIN,TOTAL 0.3 mg/dL (0.2-1.0); TOTAL PROTEIN, SERUM 7.9 g/dL (6.4-8.2)
[2021-06-18] MEDS ORDERED: VANCOMYCIN 1 GM VIAL ONE (05:06)
--- NOTE | 2021-06-18 05:15 | NUR ---
IV ACCESS ESTABLISHED L WRIST #24G S/L
[2021-06-18] MEDS ORDERED: ACETAMINOPHEN 325 MG TABLET PO PRN (06:00)
[2021-06-18] MEDS ORDERED: IV NS 0.9% 1,000 ML IV PRN (06:00)
[2021-06-18] MEDS ORDERED: HYDROCODONE/APAP 5/325MG TABLET PO PRN (06:00)
[2021-06-18] MEDS ORDERED: MAG HYDROX/AL HYDROX/SIMETH 30 ML UDC PO PRN (06:00)
[2021-06-18] MEDS ORDERED: ONDANSETRON HCL/PF 4 MG/2 ML VIAL IVP PRN (06:00)
[2021-06-18] MEDS ORDERED: PANTOPRAZOLE 40 MG TABLET.DR PO SCH (07:30)
--- NOTE | 2021-06-18 08:30 | NUR ---
SEEN BY DR FOURNIER
[2021-06-18] MEDS ORDERED: Z GUARD REMEDY 4 OZ OINT TP PRN (09:00)
--- NOTE | 2021-06-18 09:30 | NUR ---
BREAKFAST TRAY PROVIDED
[2021-06-18] MEDS ORDERED: PANTOPRAZOLE 40 MG TABLET.DR PO ONE (09:38)
[2021-06-18] MEDS ORDERED: POTASSIUM CHLORIDE 20 MEQ TAB.PRT.SR PO SCH (10:00)
[2021-06-18] MEDS ORDERED: POTASSIUM CHLORIDE 20 MEQ TAB.PRT.SR PO ONE (10:30)
--- NOTE | 2021-06-18 13:20 | NUR ---
IV removed. Catheter intact and site benign. Pressure and 4x4 applied to site. No bleeding noted.
--- NOTE | 2021-06-18 13:20 | NUR ---
Patient does not wish to proceed with medical care recommended by Dr. Calloway. Patient given information related to possible complications, up to and including , which could occur as a result of leaving the hospital at this time. Patient verbalizes understanding of risks involved due to leaving against medical advice. Patient refused to sign AMA form.
[2021-06-18 13:22] VITALS: BP 108/67
[2021-06-18] MEDS ORDERED: VANCOMYCIN HCL 0.75 GM in IV D5W 250 ML IV SCH (17:00)
[2021-06-18] MEDS ORDERED: MAGNESIUM HYDROXIDE 30 ML UDC PO PRN (22:00)
== END 2021-06-18 13:20 | disposition left against medical advice (07) | DRG 383 ==
LOC: ER 02:52 → TRANSITION 07:51
PROVIDERS: ADMIT Internal Medicine; ATTEND Internal Medicine
DX: L02.31 Cutaneous abscess of buttock (principal); E87.6 Hypokalemia; L03.317 Cellulitis of buttock; Z20.822 Contact with and (suspected) exposure to COVID-19; Z88.0 Allergy status to penicillin; Z59.00 Homelessness unspecified; F19.90 Other psychoactive substance use, unspecified, uncomplicated; F17.200 Nicotine dependence, unspecified, uncomplicated
CPT/HCPCS: 36415; 80048-TC; 80076-TC; 83605-TC; 85025-TC; 85730-TC; 87040-TC; 87081-TC; C9803; G0378; J3370; J7060